=== PATIENT | female | born 2000 | race Caucasian/White ===

== ENCOUNTER 2022-06-05 05:00 | Emergency (ER) | payer BC ==
[2022-06-05] MEDS ORDERED: Ondansetron 4 MG Tab.DIS PO ONE (05:18)
== END 2022-06-05 06:05 | disposition home or self-care (01) ==
LOC: JP.ED 05:00
DX: J02.9 Acute pharyngitis, unspecified (principal); Z88.2 Allergy status to sulfonamides; Z20.822 Contact with and (suspected) exposure to COVID-19
CPT/HCPCS: 36415; 85025; 87081; 87635; 87880; 99283; Q0162; U0002